=== PATIENT | female | born 1995 | race Caucasian/White ===

== ENCOUNTER → 2016-12-31 | Outpatient (REF) | payer OTHER ==
[~2016-12-31] MED LIST: ACET50TA PO; COLA100C PO; IBUP-1114 PO; LEVA500T PO; MOM30SS PO; PERC5TAB6 PO
[2016-12-31 13:39] LABS: MEAN CORPUSCULAR HEMOGLOBIN 28.9 pg (27.0-33.0); MEAN CORPUSCULAR HGB CONC 32.9 g/dl (32.0-36.5); MEAN CORPUSCULAR VOLUME 87.9 fl (80.0-96.0); WHITE BLOOD COUNT 7.4 K/mm3 (4.0-10.0)
[2016-12-31 14:19] LABS: CONTROL LINE INT CTR LINE PRESENT; HIV SCRN NEGATIVE (NEGATIVE); HIV SCRN1 NEGATIVE (NEGATIVE)
[2017-01-01 11:16] LABS: HBsAg Prenatal NEGATIVE (NEGATIVE)
== END ==
LOC: M LAB REF 12:30
PROVIDERS: ATTEND Obstetrics & Gynecology
DX: O36.80X0 Pregnancy with inconclusive fetal viability, not applicable or unspecified (principal); Z3A.00 Weeks of gestation of pregnancy not specified

== ENCOUNTER 2017-01-05 22:17 | Emergency (ER) | payer OTHER ==
[~2017-01-05] VITALS: Ht 175.3 cm; Wt 68.0 kg
[~2017-01-05 22:17] MED LIST changes: -COLA100C PO; +COLA100C3 PO
--- NOTE | 2017-01-06 01:00 | REPUSA ---
CLINICAL HISTORY: Vaginal bleeding. TECHNIQUE: Transabdominal and endovaginal ultrasound of the pelvis was performed. FINDINGS: Single, live intrauterine gestation. Estimated gestational age is 6 weeks and 3 days. [place]-rump length measures 7 mm. heart rate 126 beats per minute. There is a subchorionic hemorrhage measuring 3.6x2.5x3.4 cm the left of the gestational sac. Left ovarian corpus luteum cyst measuring 2 cm. Estimated delivery date on 08/29/2017. IMPRESSION: Single, live intrauterine gestation. Subchorionic hemorrhage.
[2017-01-06 01:40] VITALS: BP 101/64
--- NOTE | 2017-01-14 21:19 | ED PDOC ---
Post-Departure Follow-Up dr mccarty faxed formal report of 1st trimester us Jayleen Gann MD Jan 14, 2017 21:19
== END 2017-01-06 01:45 | disposition home or self-care (01) ==
LOC: M ED 23:47
DX: O26.891 Other specified pregnancy related conditions, first trimester (principal); N83.12 Corpus luteum cyst of left ovary; O36.8911 Maternal care for other specified fetal problems, first trimester, fetus 1; Z32.01 Encounter for pregnancy test, result positive; Z3A.01 Less than 8 weeks gestation of pregnancy

== ENCOUNTER → 2017-04-02 | Outpatient (CLI) | payer OTHER | LOC: M LAB 10:55 | PROVIDERS: ATTEND Advanced Practice Midwife | DX: Z31.438 Encounter for other genetic testing of female for procreative management (principal) ==

== ENCOUNTER → 2017-04-02 | Outpatient (CLI) | payer OTHER ==
--- NOTE | 2017-04-03 05:24 | REP ---
Clinical: Anatomical evaluation. Comparison: 01/06/2017 . Findings: Examination demonstrates a single live intrauterine in cephalic presentation. motion is identified by technologist. Placenta is noted fundally and grade zero without evidence for placenta previa or abruption. Amniotic fluid volume is normal. Cervix measures 3.2 cm in length and appears closed. No evidence for nuchal cord. Gestational age by LMP 18 weeks 3 days with JOURDAN 08/31/2017 . Gestational age by current measurements 18 weeks 6 days with JOURDAN 08/28/2017 . FHR equals 149 beats per minute. BPD 4.4 cm 19 weeks 3 days HC 15.9 cm 18 weeks 5 days AC 13.0 cm 18 weeks 4 days FL 2.8 cm 18 weeks 4 days HL 2.8 cm 18 weeks 6 days HC/AC ratio 1.22 Estimated weight 248 grams ( 54th percentile). Anatomical assessment demonstrates normal structures including cranium, choroid plexus, cavum, cerebellum/posterior fossa, facial features, lungs, four-chamber heart/ventricular outflow tracts, diaphragm, stomach, cord insertion/three-vessel cord, kidneys/bladder, spine, and extremities. Impression: 1. Single live intrauterine in cephalic presentation demonstrating appropriate interval growth. Anatomical assessment is complete and normal. 2. 4 cm cystic area within the posterior inferior portion of the placenta may represent small placental cyst or [place]. Signed by Jamel Atwood MD 04/03/2017 05:15 A
== END ==
LOC: M RAD 10:02
PROVIDERS: ATTEND Advanced Practice Midwife
DX: Z36 Encounter for antenatal screening of mother (principal); Z3A.18 18 weeks gestation of pregnancy

== ENCOUNTER 2017-04-09 18:24 | Emergency (ER) | payer OTHER, SELFPAY ==
[~2017-04-09] VITALS: Ht 175.3 cm; Wt 69.1 kg
[~2017-04-09 18:24] MED LIST changes: -COLA100C3 PO; +COLA100C5 PO; +LEVA1TAB2 PO; -LEVA500T PO; +PERC5TAB12 PO; -PERC5TAB6 PO
[2017-04-09 18:28] VITALS: BP 144/73
== END 2017-04-09 18:55 | disposition admitted as inpatient to this hospital (09) ==
LOC: M ED 18:24 → EDBD 18:24 → M ED 18:55
DX: Z04.1 Encounter for examination and observation following transport accident (principal); V43.52XA Car driver injured in collision with other type car in traffic accident, initial encounter; Y92.410 Unspecified street and highway as the place of occurrence of the external cause; Z3A.22 22 weeks gestation of pregnancy

== ENCOUNTER 2017-04-09 18:58 | Outpatient (CLI) | payer OTHER, SELFPAY ==
[2017-04-09 19:20] VITALS: BP 102/59
[2017-04-09 20:11] LABS: MEAN CORPUSCULAR HEMOGLOBIN 31.5 pg (27.0-33.0); MEAN CORPUSCULAR HGB CONC 35.4 g/dl (32.0-36.5); MEAN CORPUSCULAR VOLUME 88.9 fl (80.0-96.0); RED CELL DISTRIBUTION WIDTH 13.2 % (11.5-14.5); WHITE BLOOD COUNT 13.2 K/mm3 (4.0-10.0)
[2017-04-09 20:53] LABS: INR 0.98
== END 2017-04-09 21:00 | disposition home or self-care (01) ==
LOC: M LDO 18:58
PROVIDERS: ATTEND Advanced Practice Midwife
DX: Z04.3 Encounter for examination and observation following other accident (principal); V43.52XA Car driver injured in collision with other type car in traffic accident, initial encounter; Y92.410 Unspecified street and highway as the place of occurrence of the external cause; Y93.9 Activity, unspecified; Y99.9 Unspecified external cause status; Z3A.19 19 weeks gestation of pregnancy

== ENCOUNTER → 2017-05-07 | Outpatient (REF) | payer OTHER ==
[~2017-05-07] MED LIST changes: +FERR325T3 PO; +PREN1CHW4 PO
== END ==
LOC: M LAB REF 13:10
PROVIDERS: ATTEND Advanced Practice Midwife
DX: Z36 Encounter for antenatal screening of mother (principal); Z3A.00 Weeks of gestation of pregnancy not specified

== ENCOUNTER → 2017-06-23 | Outpatient (CLI) | payer OTHER ==
[~2017-06-23] MED LIST changes: +ADVI200C5 PO
[2017-06-23 14:09] LABS: BASO % 0.3 % (0.0-1.0); EOS # 0.1 K/mm3 (0.0-0.50); EOS % 0.8 % (0.0-3.0); LARGE UNSTAINED CELL # 0.1 K/mm3 (0.0-0.4); LARGE UNSTAINED CELL % 0.6 % (0.0-4.0); LYMPH # 1.5 K/mm3 (1.5-6.5); LYMPH % 13.9 % (24.0-44.0); MEAN CORPUSCULAR HEMOGLOBIN 31.4 pg (27.0-33.0); MEAN CORPUSCULAR VOLUME 92.3 fl (80.0-96.0); MONO # 0.6 K/mm3 (0.0-0.8); MONO % 5.4 % (0.0-5.0); NEUTROPHILS # 8.2 K/mm3 (1.8-7.7); NEUTROPHILS % 79.1 % (36.0-66.0); PLATELET COUNT, AUTOMATED 173 k/mm3 (150-450); RED CELL DISTRIBUTION WIDTH 12.9 % (11.5-14.5); WHITE BLOOD COUNT 10.4 K/mm3 (4.0-10.0)
== END ==
LOC: M SMT 10:00
PROVIDERS: ATTEND Advanced Practice Midwife
DX: Z36 Encounter for antenatal screening of mother (principal); Z3A.00 Weeks of gestation of pregnancy not specified

== ENCOUNTER → 2017-07-07 | Outpatient (REF) | payer OTHER | LOC: M LAB REF 12:57 | PROVIDERS: ATTEND Specialist | DX: Z36 Encounter for antenatal screening of mother (principal); Z3A.00 Weeks of gestation of pregnancy not specified ==

== ENCOUNTER → 2017-07-08 | Outpatient (CLI) | payer OTHER ==
--- NOTE | 2017-07-09 05:58 | REP ---
Clinical: Growth evaluation. Comparison: 04/02/2017 . Findings: Examination demonstrates a single live intrauterine in cephalic presentation. motion is identified by technologist. Placenta is noted right fundal and grade zero without evidence for placenta previa or abruption. Amniotic fluid volume is normal. Cervix measures 4.4 cm in length and appears closed. Nuchal cord noted. Gestational age by LMP 32 weeks 2 days with JOURDAN 08/31/2017 . Gestational age by current measurements 31 weeks 4 days with JOURDAN 09/05/2017 . FHR equals 133 beats per minute. BPD 8.1 cm 32 weeks 4 days HC 27.9 cm 30 weeks 4 days AC 28.2 cm 32 weeks 1 day FL 5.9 cm 30 weeks 5 days HL 5.4 cm 31 weeks 4 days HC/AC ratio 0.99 Estimated weight 1806 grams ( 30th percentile). Amniotic fluid index equals 12.9 cm (8.5 - 24.3) SD ratio equals 2.45 (2.35 - 3.35). Impression: 1. Single live intrauterine in cephalic presentation demonstrating appropriate interval growth. 2. Evidence for nuchal cord. Signed by Jamel Atwood MD 07/09/2017 05:50 A
== END ==
LOC: M RAD 14:30
PROVIDERS: ATTEND Specialist
DX: Z36 Encounter for antenatal screening of mother (principal); Z3A.00 Weeks of gestation of pregnancy not specified

== ENCOUNTER 2017-07-21 21:46 | Emergency (ER) | payer MEDICAID, OTHER, SELFPAY ==
[~2017-07-21] VITALS: Ht 177.8 cm; Wt 73.3 kg
[~2017-07-21 21:46] MED LIST changes: -ADVI200C5 PO; -FERR325T3 PO; -PREN1CHW4 PO
[2017-07-21 21:47] VITALS: BP 149/78
[2017-07-21] MEDS ORDERED: FERR325T3 PO (22:00)
[2017-07-21] MEDS ORDERED: PREN1CHW4 PO (22:00)
== END 2017-07-21 22:29 | disposition home or self-care (01) ==
LOC: M ED 21:46
DX: T16.2XXA Foreign body in left ear, initial encounter (principal); Y92.89 Other specified places as the place of occurrence of the external cause; Z79.899 Other long term (current) drug therapy

== ENCOUNTER → 2017-08-07 | Outpatient (REF) | payer MEDICAID, OTHER ==
[~2017-08-07] MED LIST changes: +ADVI200C5 PO; +FERR325T3 PO; +PREN1CHW4 PO
== END ==
LOC: M LAB REF 17:18
PROVIDERS: ATTEND Specialist
DX: Z34.83 Encounter for supervision of other normal pregnancy, third trimester (principal)

== ENCOUNTER 2017-08-23 22:07 | Inpatient (IN) | payer MEDICAID, OTHER ==
[~2017-08-23] VITALS: Ht 175.3 cm; Wt 75.1 kg
[~2017-08-23 22:07] MED LIST changes: -ADVI200C5 PO
[2017-08-23 22:25] VITALS: BP 122/77
[2017-08-23] MEDS ORDERED: PENICILLIN G POTASSIUM IV 5 MU in D5W MINI-BAG PLUS 100 ML IV STA (23:40)
[2017-08-23] MEDS ORDERED: OXYTOCIN DRIP 30 UNITS in APPROPRIATE DILUENT 1 EA IV SCH (23:45)
[2017-08-24] VITALS (45 sets, daily range): BP systolic 98–135; BP diastolic 53–93
[2017-08-24 00:11] LABS: MEAN CORPUSCULAR HEMOGLOBIN 30.6 pg (27.0-33.0); MEAN CORPUSCULAR HGB CONC 34.4 g/dl (32.0-36.5); MEAN CORPUSCULAR VOLUME 89.1 fl (80.0-96.0); PLATELET COUNT, AUTOMATED 182 10^3/uL (150-450); WHITE BLOOD COUNT 13.5 10^3/uL (4.0-10.0)
[2017-08-24] MEDS: LR 1,000 ML IV SCH ×2 (00:11→08:46)
--- NOTE | 2017-08-24 01:24 | HPE ---
DATE OF ADMISSION: 08/23/2017 HISTORY: 21-year-old (G) 2, para (P) 1 female at 39-0/7 weeks gestation by last menstrual period (LMP) consistent with 6-week ultrasound, estimated date of confinement (EDC) of 08/31/2017, presents with contractions every 4-5 minutes, as well as question of leaking fluid per vagina. She has low back pain. She denies vaginal bleeding. COURSE: The patient initiated care at 11 weeks gestation on 01/30/2017. Her first trimester blood pressure was 118/74. Weight was 153 pounds. course was unremarkable. OBSTETRICAL HISTORY: April 2016 40-week vaginal delivery, 7 pound 0 ounce female infant. MEDICAL HISTORY: Noncontributory. SURGICAL HISTORY: 2014 nephrectomy to donate a kidney to her brother. SOCIAL HISTORY: The father of the baby is involved. The patient denies cigarettes, alcohol or drug use during her . FAMILY HISTORY: History of pesxfuma-ubw-ciudn syndrome in her brother. PHYSICAL EXAMINATION: VITAL SIGNS: Blood pressure 124/74, pulse 84. She appears moderately uncomfortable. HEAD/NECK: Examination normal. LUNGS: Clear. HEART: Regular rate and rhythm. ABDOMEN: Nontender. Gravid. heart tones category 1. Contractions every 4 minutes. STERILE VAGINAL EXAMINATION: 4 cm, 90% effaced, -2 station, vertex, intact. EXTREMITIES: Nontender. LABORATORIES: Blood type O positive. Rubella immune. RPR nonreactive. Hepatitis B and C negative. HIV negative. Group B Streptococcus (GBS) positive on 08/11/2017. ASSESSMENT: 21-year-old (G) 2, para (P) 1 female at 39-0/7 weeks gestation presents in active labor. Patient is admitted on 08/23/2017. If labor stalls, may require Pitocin augmentation.
[2017-08-24] MEDS ORDERED: FENTANYL 2MCG/ML ROPIVACAINE 0.2% IN 0.9% NACL 200ML IVBAG As Ordered ONE (02:59)
[2017-08-24] MEDS: PENICILLIN G POTASSIUM IV 2.5 MU in D5W 100 ML IV SCH ×2 (04:19→08:47)
[2017-08-24] MEDS ORDERED: ONDANSETRON 4MG/2ML VIAL (J2405) IV PRN ×2 (04:30→12:45)
[2017-08-24] MEDS ORDERED: LACTATED RINGER'S 1000 ML IV PRN (04:30)
[2017-08-24] MEDS ORDERED: EPIDURAL/PCA KEYS XX PRN (04:30)
[2017-08-24] MEDS ORDERED: ePHEDrine SULFATE 25 MG/5 ML(5MG/ML) SYRINGE IV PRN (04:30)
[2017-08-24] MEDS ORDERED: REFRIGERATOR IV KEYS XX PRN (04:30)
[2017-08-24] MEDS ORDERED: FENTANYL/ROPIVACAINE/NACL BAG 200 ML EPIDURAL SCH (04:30)
[2017-08-24] MEDS ORDERED: diphenhydrAMINE INJ 50MG/ML VIAL (J1200) IV PRN (04:30)
[2017-08-24] MEDS ORDERED: NALOXONE INJ 0.4 MG/1 ML VIAL (J2310) IV PRN (04:30)
[2017-08-24] MEDS ORDERED: EPIDURAL COMMENT XX SCH (04:30)
[2017-08-24] MEDS: PRENATAL VITAMINS CHEWABLE TABLET PO SCH (09:00)
[2017-08-24] MEDS ORDERED: METHYLERGONOVINE MALEATE 0.2 MG TAB PO PRN (12:45)
[2017-08-24] MEDS ORDERED: DIBUCAINE 1% OINTMENT 30GM TOP PRN (12:45)
[2017-08-24] MEDS ORDERED: RHOGAM 300 MCG (1500 IU) INJ (J2790) IM SCH (12:45)
[2017-08-24] MEDS ORDERED: DOCUSATE SODIUM 100 MG CAP PO PRN (12:45)
[2017-08-24] MEDS ORDERED: MEASLES,MUMPS,RUBELLA VACCINE INJ (MMR-II) (90707) SC SCH (12:45)
[2017-08-24] MEDS ORDERED: OXYTOCIN DRIP 30 UNITS in APPROPRIATE DILUENT 1 EA IV ONE (12:45)
[2017-08-24] MEDS ORDERED: ACETAMINOPHEN 500 MG TAB PO PRN (12:45)
[2017-08-24] MEDS: IBUPROFEN 800 MG TAB PO PRN (13:25)
--- NOTE | 2017-08-24 22:09 | DN ---
DATE: 08/24/2017 PREDELIVERY DIAGNOSIS: 39 and 0/7 weeks gestation in labor. POSTDELIVERY DIAGNOSIS: Delivered. PROCEDURE: Spontaneous vaginal delivery. APPEALS EXAMINER: Dr. Philip Garvin. ANESTHESIA: Epidural. ESTIMATED BLOOD LOSS: 300 mL. FINDINGS: 6 pound 13 ounce female infant, scores 9 and 9, 3090 grams. DELIVERY SUMMARY: After a total of two pushes, the patient had spontaneous delivery of a 6 pound 13 ounce female , scores 9 and 9, under epidural anesthesia. Nuchal cord times one was reduced. The shoulders delivered spontaneously with ease. The infant cried immediately and was handed to the mother. The cord was doubly clamped and cut. The placenta was delivered by manual extraction and appeared to be intact. The patient received intravenous (IV) Pitocin immediately after delivering the placenta. There were no sponges used during delivery so there was no sponge count done.
[2017-08-25] MEDS: IBUPROFEN 800 MG TAB PO PRN (00:29)
[2017-08-25 05:33] VITALS: BP 111/59
[2017-08-25] MEDS: PRENATAL VITAMINS CHEWABLE TABLET PO SCH (07:41)
[2017-08-25] MEDS ORDERED: ACET50TA PO (07:53)
[2017-08-25] MEDS ORDERED: ADVI200C5 PO (07:54)
[2017-08-25] MEDS ORDERED: medroxyPROGESTERone ACET IM SUSP 150 MG/ML VIAL (J1050) IM ONE (16:00)
== END 2017-08-25 17:35 | disposition home or self-care (01) | DRG 560 ==
LOC: M LDO 22:07 → M LDI 23:34 → M OBS 08-24 13:48
PROVIDERS: ADMIT Specialist; ATTEND Specialist
PROC: 10E0XZZ Delivery of Products of Conception, External Approach (ICD-10-PCS; principal; 2017-08-24)
DX: O99.824 Streptococcus B carrier state complicating childbirth (principal); O69.81X0 Labor and delivery complicated by cord around neck, without compression, not applicable or unspecified; Z3A.39 39 weeks gestation of pregnancy; Z37.0 Single live birth

== ENCOUNTER → 2018-09-18 | Outpatient (REF) | payer OTHER | LOC: M SFHCPLAZ 10:44 | DX: Z53.9 Procedure and treatment not carried out, unspecified reason (principal) ==

== ENCOUNTER → 2018-09-22 | Outpatient (CLI) | payer OTHER ==
[~2018-09-22] MED LIST changes: -ACET50TA PO; +ADVI200C5 PO; +MAPA500T2 PO
[2018-09-22 07:31] LABS: BASO % 0.6 % (0.0-1.0); EOS # 0.1 10^3/uL (0.0-0.50); HEMATOCRIT 37.2 % (36.0-47.0); HEMOGLOBIN 12.6 g/dl (12.0-15.5); LYMPH # 1.7 10^3/uL (1.5-6.5); LYMPH % 30.6 % (24.0-44.0); MEAN CORPUSCULAR HEMOGLOBIN 31.3 pg (27.0-33.0); MEAN CORPUSCULAR HGB CONC 33.9 g/dl (32.0-36.5); MEAN CORPUSCULAR VOLUME 92.3 fl (80.0-96.0); MONO # 0.5 10^3/uL (0.0-0.8); MONO % 9.6 % (0.0-5.0); NEUTROPHILS # 3.1 10^3/uL (1.8-7.7); PLATELET COUNT, AUTOMATED 223 10^3/uL (150-450); RED BLOOD COUNT 4.03 10^6/uL (4.00-5.40); WHITE BLOOD COUNT 5.4 10^3/uL (4.0-10.0)
[2018-09-22 08:03] LABS: ALBUMIN 3.8 GM/DL (3.2-5.2); ALT/SGPT 21 U/L (12-78); BILIRUBIN,TOTAL 0.4 MG/DL (0.2-1.0); BLOOD UREA NITROGEN 8 MG/DL (7-18); C REACTIVE PROTEIN QUANTITATIV < 0.30 MG/DL (0.00-0.30); CALCIUM LEVEL 8.7 MG/DL (8.5-10.1); CARBON DIOXIDE LEVEL 28 MEQ/L (21-32); CHLORIDE LEVEL 109 MEQ/L (98-107); CREATININE FOR GFR 0.94 MG/DL (0.55-1.30); FREE T4 1.09 NG/DL (0.76-1.46); GLOMERULAR FILTRATION RATE > 60.0 (>60); GLUCOSE, FASTING 84 MG/DL (70-100); POTASSIUM SERUM 4.4 MEQ/L (3.5-5.1); SODIUM LEVEL 142 MEQ/L (136-145); TOTAL PROTEIN 7.2 GM/DL (6.4-8.2)
[2018-09-22 08:27] LABS: ERYTHROCYTE SEDIMENTATION RATE 6 mm/hr (0-20)
--- NOTE | 2018-09-22 10:33 | REP ---
PELVIC ULTRASOUND: Real-time sonographic evaluation of the pelvis performed utilizing transabdominal technique. The bladder is collapsed. The uterus measures 7.7 x 3.1 x 5.7 cm. Endometrial thickness is normal at 2 mm. There is no endometrial fluid collection. The ovaries are normal in size and echotexture, right ovary measuring 3.1 x 2.2 x 1.4 cm and left ovary 2.9 x 2.2 x 1.9 cm. There are normal sized follicles in the ovaries. There is no adnexal mass or free fluid. Inguinal regions are scanned demonstrating no adenopathy. IMPRESSION: Negative pelvic ultrasound. Electronically Signed by Sim Easton MD 09/22/2018 03:40 P
== END ==
LOC: M LAB 07:00
PROVIDERS: ATTEND Obstetrics & Gynecology
DX: R63.4 Abnormal weight loss (principal)

== ENCOUNTER → 2018-10-26 | Outpatient (REF) | payer OTHER | LOC: M LABDRAW1 11:05 | PROVIDERS: ATTEND Obstetrics & Gynecology | DX: Z36.89 Encounter for other specified antenatal screening (principal); Z3A.01 Less than 8 weeks gestation of pregnancy ==

== ENCOUNTER 2018-12-21 17:29 | Emergency (ER) | payer OTHER ==
[~2018-12-21] VITALS: Ht 175.3 cm; Wt 56.8 kg
[2018-12-21 17:29] VITALS: BP 113/58
== END 2018-12-21 19:26 | disposition left against medical advice (07) ==
LOC: M ED 17:29
DX: Z53.21 Procedure and treatment not carried out due to patient leaving prior to being seen by health care provider (principal)

== ENCOUNTER 2019-03-06 07:57 | Emergency (ER) | payer OTHER ==
[~2019-03-06] VITALS: Ht 177.8 cm; Wt 59.7 kg
[2019-03-06 08:39] LABS: BASO % 0.3 % (0.0-1.0); EOS # 0.1 10^3/uL (0.0-0.50); EOS % 0.7 % (0.0-3.0); HEMATOCRIT 33.3 % (36.0-47.0); HEMOGLOBIN 11.5 g/dl (12.0-15.5); LYMPH # 1.3 10^3/uL (1.5-6.5); LYMPH % 11.9 % (24.0-44.0); MEAN CORPUSCULAR HEMOGLOBIN 32.6 pg (27.0-33.0); MEAN CORPUSCULAR HGB CONC 34.5 g/dl (32.0-36.5); MEAN CORPUSCULAR VOLUME 94.3 fl (80.0-96.0); MONO # 0.7 10^3/uL (0.0-0.8); MONO % 6.4 % (0.0-5.0); NEUTROPHILS # 8.8 10^3/uL (1.8-7.7); NEUTROPHILS % 79.3 % (36.0-66.0); PLATELET COUNT, AUTOMATED 204 10^3/uL (150-450); RED BLOOD COUNT 3.53 10^6/uL (4.00-5.40); WHITE BLOOD COUNT 11.1 10^3/uL (4.0-10.0)
[2019-03-06 08:59] LABS: BLOOD UREA NITROGEN 8 MG/DL (7-18); CALCIUM LEVEL 8.8 MG/DL (8.5-10.1); CARBON DIOXIDE LEVEL 27 MEQ/L (21-32); CHLORIDE LEVEL 106 MEQ/L (98-107); CREATININE FOR GFR 0.68 MG/DL (0.55-1.30); GLOMERULAR FILTRATION RATE > 60.0 (>60); GLUCOSE, FASTING 81 MG/DL (70-100); POTASSIUM SERUM 4.1 MEQ/L (3.5-5.1); SODIUM LEVEL 138 MEQ/L (136-145)
--- NOTE | 2019-03-06 09:29 | REP ---
Clinical: Vaginal bleeding. Comparison: 03/02/2019 . Findings: Examination demonstrates a single live intrauterine in cephalic presentation. motion is identified by technologist. heart rate equals 149 beats per minute. Placenta is noted anterior/right lateral and grade 1 without evidence for placenta previa or abruption. Amniotic fluid volume is normal (ANILA = 14.4 cm). Cervix measures 3.5 cm in length and appears closed. A large subchorionic hemorrhage is identified extending from the lower uterine segment towards the left lateral fundal portion of the uterus which is difficult to completely quantify but measures greater than 7 cm maximal diameter. This likely represents the merging of the previously noted two separate areas of subchorionic hemorrhage and does appear to extend over the closed internal os. Impression: 1. Large subchorionic hemorrhage as described above. 2. Live fetus in cephalic presentation. Electronically Signed by Jamel Atwood MD 03/06/2019 09:20 A
[2019-03-06 10:42] VITALS: BP 106/57
== END 2019-03-06 10:44 | disposition home or self-care (01) ==
LOC: M ED 07:57
DX: O36.8921 Maternal care for other specified fetal problems, second trimester, fetus 1 (principal); Z3A.19 19 weeks gestation of pregnancy

== ENCOUNTER → 2019-03-23 | Outpatient (CLI) | payer OTHER ==
--- NOTE | 2019-03-23 10:37 | REP ---
Obstetric sonography: History: Supervision of for anatomy. Comparison study March 06, 2019. Findings: Scanning through the gravid uterus demonstrates a viable single intrauterine gestation in a breech lie. motion is observed and heart rate is recorded at 144 beats per minute. An anterior grade 0 placenta is seen without evidence of previa or abruption. Amniotic fluid is subjectively normal. Closed cervical length is 4.2 cm measured transabdominally. No extrauterine abnormalities observed. There has been appropriate interval growth. The previously noted subchorionic hemorrhages are again noted. A right fundal portion is seen measuring 2.4 x 2.0 x 1.2 cm. A lower uterine segment portion is noted measuring 6.1 x 1.0 x 6.6 cm on today's examination. spine is still less than optimally visualized today due to position. Biometry chart: BPD 4.9 cm = 20 weeks 6 days Head circumference 18.6 cm = 21 weeks 0 days Abdominal circumference 15.8 cm = 21 weeks 0 days Femur length 3.4 cm = 20 weeks 5 days Humeral length 3.4 cm = 21 weeks 5 days HC/AC ratio normal 1.18. Cephalic index normal 0.73. Estimated weight 381 grams, 0 pounds 13 ounces, 41st percentile for 21 weeks 0 days. Impression: Viable single intrauterine gestation at 21 weeks 0 days by today's composite sonographic criteria. Expected gestational age estimate based on prior sonography is 21 weeks 1 day. JOURDAN by prior sonography August 02, 2019. Two subchorionic hemorrhages again noted as measured above. spine is still less than optimally visualized. Electronically Signed by Jah Morris MD 03/23/2019 09:02 P
== END ==
LOC: M RAD 08:59
PROVIDERS: ATTEND Specialist
DX: Z36.2 Encounter for other antenatal screening follow-up (principal); O36.8921 Maternal care for other specified fetal problems, second trimester, fetus 1; Z3A.21 21 weeks gestation of pregnancy

== ENCOUNTER → 2019-04-12 | Outpatient (CLI) | payer OTHER ==
[~2019-04-12] MED LIST changes: +ROBILIQ13 PO
--- NOTE | 2019-04-12 19:31 | REP ---
Clinical: Anatomical evaluation. Comparison: 03/23/2019 . Findings: Examination demonstrates a single live intrauterine in cephalic presentation. motion is identified by technologist. Placenta is noted anterior/right lateral and grade one without evidence for placenta previa or abruption. Amniotic fluid volume is normal. Cervix measures 3.9 cm in length and appears closed. No evidence for nuchal cord. Previously identified subchorionic hemorrhage appears to have resolved. Gestational age by LMP 23 weeks 6 days with JOURDAN 08/03/2019 . Gestational age by current measurements 24 weeks 3 days with JOURDAN 07/30/2019 . FHR equals 137 beats per minute. Estimated weight 685 grams ( 57th percentile). Anatomical assessment demonstrates normal spinal images. Impression: 1. Single live intrauterine in cephalic presentation demonstrating appropriate interval growth. In conjunction with prior examination anatomical assessment is complete and normal. No gross abnormalities are identified. 2. The previous identified subchorionic hemorrhage is no longer visible and may have resolved. Electronically Signed by Jamel Atwood MD 04/12/2019 07:23 P
== END ==
LOC: M RAD 16:34
PROVIDERS: ATTEND Specialist
DX: Z34.82 Encounter for supervision of other normal pregnancy, second trimester (principal); Z3A.24 24 weeks gestation of pregnancy

== ENCOUNTER → 2019-05-28 | Outpatient (CLI) | payer OTHER ==
[~2019-05-28] MED LIST changes: -ROBILIQ13 PO
[2019-05-28 10:03] LABS: BASO % 0.4 % (0.0-1.0); EOS # 0.1 10^3/uL (0.0-0.50); HEMOGLOBIN 11.3 g/dl (12.0-15.5); LYMPH # 1.7 10^3/uL (1.5-6.5); LYMPH % 16.3 % (24.0-44.0); MEAN CORPUSCULAR HEMOGLOBIN 33.2 pg (27.0-33.0); MEAN CORPUSCULAR HGB CONC 35.3 g/dl (32.0-36.5); MEAN CORPUSCULAR VOLUME 94.1 fl (80.0-96.0); MONO # 0.7 10^3/uL (0.0-0.8); MONO % 6.6 % (0.0-5.0); NEUTROPHILS # 7.6 10^3/uL (1.8-7.7); NEUTROPHILS % 74.1 % (36.0-66.0); PLATELET COUNT, AUTOMATED 164 10^3/uL (150-450); WHITE BLOOD COUNT 10.3 10^3/uL (4.0-10.0)
== END ==
LOC: M LAB 08:38
PROVIDERS: ATTEND Specialist
DX: Z34.82 Encounter for supervision of other normal pregnancy, second trimester (principal)

== ENCOUNTER → 2019-06-29 | Outpatient (CLI) | payer OTHER ==
--- NOTE | 2019-06-30 03:37 | REP ---
Clinical: Growth evaluation. Comparison: 04/12/2019 . Findings: Examination demonstrates a single live intrauterine in cephalic presentation. motion is identified by technologist. Placenta is noted anterior and grade II without evidence for placenta previa or abruption. Amniotic fluid volume is normal. Cervix measures 3.3 cm in length and appears closed. No evidence for nuchal cord. Gestational age by LMP 35 weeks 0 days with JOURDAN 08/03/2019 . Gestational age by current measurements 34 weeks 1 day with JOURDAN 08/09/2019 . FHR equals 129 beats per minute. BPD 8.8 cm 35 weeks 5 day HC 31.5 cm 35 weeks 2 days AC 28.4 cm 32 weeks 3 days FL 6.6 cm 33 weeks 6 days HL 5.7 cm 33 weeks 2 days HC/AC ratio 1.11 Estimated weight 2190 grams ( 21st percentile). Amniotic fluid volume: 12.7 cm (7.9 - 24.9). Umbilical cord SD ratio: 2.29 (2.00 - 3.00) Impression: Single live advanced gestation in cephalic presentation demonstrating appropriate interval growth. No gross abnormalities are identified. Electronically Signed by Jamel Atwood MD 06/30/2019 03:28 A
== END ==
LOC: M RAD 14:53
PROVIDERS: ATTEND Specialist
DX: O36.5933 Maternal care for other known or suspected poor fetal growth, third trimester, fetus 3 (principal); Z3A.35 35 weeks gestation of pregnancy

== ENCOUNTER → 2019-07-06 | Outpatient (REF) | payer OTHER | LOC: M LAB REF 12:57 | PROVIDERS: ATTEND Specialist | DX: Z36.85 Encounter for antenatal screening for Streptococcus B (principal) ==

== ENCOUNTER 2019-07-20 15:36 | Inpatient (IN) | payer OTHER ==
[2019-07-20] VITALS (20 sets, daily range): BP systolic 90–135; BP diastolic 50–86
[~2019-07-20] VITALS: Ht 175.3 cm; Wt 71.4 kg
[2019-07-20] MEDS ORDERED: ROBILIQ13 PO (16:06)
--- NOTE | 2019-07-20 17:39 | HPE ---
DATE OF ADMISSION: 07/20/2019 A 23-year-old 4, para 2-0-1-2 female at 38-2/7 weeks gestation by 8-week ultrasound, estimated date of confinement (EDC) of 08/01/2019, presents with contractions every 3-4 minutes, throughout the entire day today, the contractions increased in intensity. She thought she might be leaking a little bit of fluid but was not sure. There was good movement. There was no vaginal bleeding. COURSE: The patient initiated care at 12 weeks gestation, 01/19/2019. Her first trimester blood pressure was 104/64, weight was 125 pounds. She had a large subchorionic hemorrhage noted early , which subsequently resolved. Remainder of course was unremarkable. MEDICAL HISTORY: None. SURGICAL HISTORY: Removal of kidney 2014 for donation to a family member. ALLERGIES: None. SOCIAL HISTORY: The father of the baby is involved. Patient denies cigarettes, alcohol, or drug use during . FAMILY HISTORY: Noncontributory. PHYSICAL EXAMINATION: Blood pressure 119/69, pulse 112, afebrile. Appears moderately uncomfortable. Head and neck exam is normal. Lungs: Clear. Heart: Regular rate and rhythm. Abdomen: Nontender, gravid. heart tones: Category 1. Sterile vaginal exam: 4 cm, 90%, -2, posterior, soft, vertex. Contractions every 3-4 minutes. Extremities: Nontender. LABS: Blood type O positive, Rubella immune, RPR nonreactive. Hepatitis B and C negative. GBS negative on 07/06/2019. ASSESSMENT: A 23-year-old 4, para 2-0-1-2 female at 38 and 2/7 weeks gestation presents in labor. PLAN: The patient is admitted on 07/20/2019. If no progress, could consider Pitocin augmentation.
[2019-07-20] MEDS ORDERED: OXYTOCIN DRIP 30 UNITS in IV 1 EA IV SCH (17:45)
[2019-07-20 17:48] LABS: HEMATOCRIT 33.6 % (36.0-47.0); HEMOGLOBIN 11.9 g/dl (12.0-15.5); MEAN CORPUSCULAR HEMOGLOBIN 32.7 pg (27.0-33.0); MEAN CORPUSCULAR HGB CONC 35.4 g/dl (32.0-36.5); MEAN CORPUSCULAR VOLUME 92.3 fl (80.0-96.0); PLATELET COUNT, AUTOMATED 228 10^3/uL (150-450); RED BLOOD COUNT 3.64 10^6/uL (4.00-5.40); WHITE BLOOD COUNT 13.3 10^3/uL (4.0-10.0)
[2019-07-20] MEDS: LR 1,000 ML IV SCH ×3 (18:43→22:14)
[2019-07-20] MEDS ORDERED: FENTANYL 2MCG/ML ROPIVACAINE 0.2% IN 0.9% NACL 100ML IVBAG As Ordered ONE (21:36)
[2019-07-20] MEDS ORDERED: diphenhydrAMINE INJ 50MG/ML VIAL (J1200) IV PRN (23:00)
[2019-07-20] MEDS ORDERED: ePHEDrine SULFATE 25 MG/5 ML(5MG/ML) SYRINGE IV PRN (23:00)
[2019-07-20] MEDS ORDERED: LACTATED RINGER'S 1000 ML IV PRN (23:00)
[2019-07-20] MEDS ORDERED: NALOXONE INJ 0.4 MG/1 ML VIAL (J2310) IV PRN (23:00)
[2019-07-20] MEDS ORDERED: EPIDURAL/PCA KEYS XX PRN (23:00)
[2019-07-20] MEDS ORDERED: ONDANSETRON 4MG/2ML VIAL (J2405) IV PRN (23:00)
[2019-07-20] MEDS ORDERED: EPIDURAL COMMENT XX SCH (23:00)
[2019-07-20] MEDS ORDERED: REFRIGERATOR IV KEYS XX PRN (23:00)
[2019-07-20] MEDS ORDERED: FENTANYL/ROPIVACAINE/NACL BAG 100 ML EPIDURAL SCH (23:00)
[2019-07-21] VITALS (10 sets, daily range): BP systolic 108–127; BP diastolic 58–75
[2019-07-21] MEDS ORDERED: MEASLES,MUMPS,RUBELLA VACCINE INJ (MMR-II) (90707) SC SCH (01:30)
[2019-07-21] MEDS ORDERED: DOCUSATE SODIUM 100 MG CAP PO PRN (01:30)
[2019-07-21] MEDS ORDERED: IBUPROFEN 600 MG TAB PO PRN (01:30)
[2019-07-21] MEDS ORDERED: ACETAMINOPHEN TAB 650MG DOSE (2X325MG) PO PRN (01:30)
[2019-07-21] MEDS ORDERED: METHYLERGONOVINE MALEATE 0.2 MG TAB PO PRN (01:30)
[2019-07-21] MEDS ORDERED: RHOGAM 300 MCG (1500 IU) INJ (J2790) IM SCH (01:30)
[2019-07-21] MEDS ORDERED: OXYTOCIN DRIP 30 UNITS in IV 1 EA IV ONE (01:30)
[2019-07-21] MEDS ORDERED: ONDANSETRON 4MG/2ML VIAL (J2405) IV PRN (01:30)
[2019-07-21] MEDS ORDERED: DIBUCAINE 1% OINTMENT 30GM TOP PRN (01:30)
[2019-07-21] MEDS: PRENATAL VITAMINS CHEWABLE TABLET PO SCH (09:14)
--- NOTE | 2019-07-21 12:37 | DN ---
DATE OF DELIVERY: 07/21/2019 PREDELIVERY DIAGNOSES: 38-3/7 weeks' gestation, labor. POSTDELIVERY DIAGNOSIS: Delivered. PROCEDURE: Spontaneous vaginal delivery. TICKETING AGENT: Pihlip Garvin MD ANESTHESIA: Epidural. ESTIMATED BLOOD LOSS: 300 mL. FINDINGS: A 5-pound 13-ounce female infant, scores 9 and 10. DELIVERY SUMMARY: After a short second phase consisting of one contraction, the patient had spontaneous delivery of a 5-pound 13-ounce female infant, scores 9 and 10, under epidural anesthesia. There was no nuchal cord. The shoulders delivered with ease. The was handed to the mother. The cord was doubly clamped and cut. The placenta delivered spontaneously and appeared to be intact. The patient received intravenous (IV) Pitocin immediately after delivery of the placenta. There were no vaginal lacerations present. Sponge counts were correct.
[2019-07-21] MEDS: IBUPROFEN 800 MG TAB PO PRN (12:45)
[2019-07-21] MEDS: ACETAMINOPHEN 500 MG TAB PO PRN (20:10)
[2019-07-22] MEDS: IBUPROFEN 800 MG TAB PO PRN (01:03)
[2019-07-22] MEDS: ACETAMINOPHEN 500 MG TAB PO PRN (05:25)
[2019-07-22 06:03] VITALS: BP 104/63
[2019-07-22] MEDS ORDERED: medroxyPROGESTERone ACET IM SUSP 150 MG/ML VIAL (J1050) IM ONE (07:00)
[2019-07-22] MEDS: PRENATAL VITAMINS CHEWABLE TABLET PO SCH (08:50)
== END 2019-07-22 09:30 | disposition home or self-care (01) | DRG 560 ==
LOC: M LDO 15:36 → M LDI 16:46 → M OBS 07-21 04:23
PROVIDERS: ADMIT Specialist; ATTEND Specialist
PROC: 10E0XZZ Delivery of Products of Conception, External Approach (ICD-10-PCS; principal; 2019-07-21)
DX: O80 Encounter for full-term uncomplicated delivery (principal); Z3A.38 38 weeks gestation of pregnancy; Z37.0 Single live birth

== ENCOUNTER → 2019-10-15 | Outpatient (REF) | payer OTHER ==
[~2019-10-15] MED LIST changes: +ROBILIQ13 PO
[2019-10-15 20:47] LABS: CHLAMYDIA DNA AMPLIFICATION NEGATIVE (NEGATIVE); GC DNA AMPLIFICATION NEGATIVE (NEGATIVE)
== END ==
LOC: M SFHCWAGY 17:03
PROVIDERS: ATTEND Obstetrics & Gynecology
DX: Z12.4 Encounter for screening for malignant neoplasm of cervix (principal)

== ENCOUNTER → 2019-12-03 | Outpatient (CLI) | payer OTHER | LOC: M LAB 08:50 | PROVIDERS: ATTEND Pediatrics Pediatric Nephrology | DX: D84.9 Immunodeficiency, unspecified (principal); N18.5 Chronic kidney disease, stage 5; Z94.0 Kidney transplant status; Z79.899 Other long term (current) drug therapy ==

== ENCOUNTER 2020-04-04 17:57 | Emergency (ER) | payer OTHER ==
[~2020-04-04] VITALS: Ht 175.3 cm; Wt 67.9 kg
[2020-04-04 17:58] VITALS: BP 142/87
[2020-04-04] MEDS ORDERED: TETRACAINE 0.5% OPHTH SOLN 4ML OS ONE (18:30)
[2020-04-04] MEDS ORDERED: FLUORESCEIN OPHTH 1 MG STRIP OS ONE (18:30)
[2020-04-04] MEDS ORDERED: OCUF0.25 OS (18:45)
== END 2020-04-04 18:50 | disposition home or self-care (01) ==
LOC: M ED 17:57
DX: S05.8X2A Other injuries of left eye and orbit, initial encounter (principal); X58.XXXA Exposure to other specified factors, initial encounter; Y92.9 Unspecified place or not applicable

== ENCOUNTER 2021-03-01 23:29 | Emergency (ER) | payer OTHER ==
[~2021-03-01] VITALS: Ht 180.3 cm; Wt 64.9 kg
[~2021-03-01 23:29] MED LIST changes: +OCUF0.25 OS
[2021-03-02 04:21] LABS: BASO # 0.1 10^3/uL (0.0-0.2); BASO % 0.4 % (0.0-1.0); EOS # 0.1 10^3/uL (0.0-0.5); EOS % 0.9 % (0.0-3.0); HEMATOCRIT 35.8 % (36.0-47.0); HEMOGLOBIN 12.1 g/dl (12.0-15.5); LYMPH # 1.8 10^3/uL (1.5-5.0); LYMPH % 13.7 % (24.0-44.0); MEAN CORPUSCULAR HEMOGLOBIN 31.3 pg (27.0-33.0); MEAN CORPUSCULAR HGB CONC 33.8 g/dl (32.0-36.5); MEAN CORPUSCULAR VOLUME 92.7 fl (80.0-96.0); MONO # 0.7 10^3/uL (0.0-0.8); NEUTROPHILS # 10.4 10^3/uL (1.5-8.5); NEUTROPHILS % 79.5 % (36.0-66.0); PLATELET COUNT, AUTOMATED 215 10^3/uL (150-450); RED BLOOD COUNT 3.86 10^6/uL (4.00-5.40); WHITE BLOOD COUNT 13.1 10^3/uL (4.0-10.0)
[2021-03-02 04:47] LABS: BLOOD UREA NITROGEN 12 MG/DL (7-18); CALCIUM LEVEL 9.1 MG/DL (8.5-10.1); CARBON DIOXIDE LEVEL 27 MEQ/L (21-32); CHLORIDE LEVEL 110 MEQ/L (98-107); CREATININE FOR GFR 1.02 MG/DL (0.55-1.30); GLOMERULAR FILTRATION RATE > 60.0 (>60); GLUCOSE, FASTING 106 MG/DL (70-100); POTASSIUM SERUM 4.5 MEQ/L (3.5-5.1); SODIUM LEVEL 141 MEQ/L (136-145)
[2021-03-02 04:52] LABS: HCG, SERUM QUALITATIVE NEGATIVE (NEGATIVE)
[2021-03-02] MEDS ORDERED: NS 1,000 ML IV ONE (07:15)
[2021-03-02] MEDS ORDERED: LIDOCAINE 1% MDV 50ML VIAL As Ordered ONE (07:34)
[2021-03-02 07:44] LABS: BASO % 0.3 % (0.0-1.0); EOS # 0.1 10^3/uL (0.0-0.5); EOS % 0.5 % (0.0-3.0); HEMATOCRIT 32.3 % (36.0-47.0); HEMOGLOBIN 11.1 g/dl (12.0-15.5); LYMPH # 1.3 10^3/uL (1.5-5.0); LYMPH % 9.4 % (24.0-44.0); MEAN CORPUSCULAR HEMOGLOBIN 31.4 pg (27.0-33.0); MEAN CORPUSCULAR HGB CONC 34.4 g/dl (32.0-36.5); MEAN CORPUSCULAR VOLUME 91.2 fl (80.0-96.0); MONO # 0.7 10^3/uL (0.0-0.8); NEUTROPHILS # 11.3 10^3/uL (1.5-8.5); NEUTROPHILS % 84.1 % (36.0-66.0); PLATELET COUNT, AUTOMATED 227 10^3/uL (150-450); RED BLOOD COUNT 3.54 10^6/uL (4.00-5.40); WHITE BLOOD COUNT 13.5 10^3/uL (4.0-10.0)
[2021-03-02] MEDS ORDERED: LIDOCAINE 1% MDV 50ML VIAL SC ONE (08:15)
--- NOTE | 2021-03-02 08:33 | IPNPDOC ---
Text Note Date of Service The patient was seen on 03/02/21. NOTE Gynecology Progress Note I was called to evaluate Alyce for heavy vaginal bleeding that started during intercourse last night at 22:00. She notes that she heard a "pop" and then felt gush of blood. She was in the waiting room for several hours overnight changing depends soaked with blood and passing large clots. She does not feel lightheaded or dizzy currently. H/H at 0400 was wnl and will be repeated. Slight tachycardia, normotensive, afebrile Gen: WDWN, resting comfortably in bed (but bleeding heavy vaginally) SSE (ER nurse as sloop captain): NEFG on close examination. Sterile speculum placed in the vagina and there was welling up of blood and large clots had to be removed with loza swabs to achieve good visualization of the vaginal mucosa. I was then able to visualize a laceration on the posterior wall of the vagina, approx 4cm inside. The laceration itself was 3cm in length and briskly bleeding. After obtaining verbal consent, I anesthetized undermining the laceration with 1% lidocaine and then repaired in routine fashion with 3-0 vicryl in running locked fashion. There was complete hemostasis noted at that point. I instructed the patient on vaginal rest for 4 weeks. Discussed return precautions Bozena Mckeon MD VS,Gaurav, I+O VS, Gaurav, I+O Laboratory Tests 03/02/21 04:08 03/02/21 07:27 Vital Signs Date Time Temp Pulse Resp B/P (MAP) Pulse Ox O2 Delivery O2 Flow Rate FiO2 03/02/21 07:59 117 03/02/21 07:45 127/70 (89) 03/01/21 23:29 98.2 20 98 Room Air Bozena Mckeon MD March 02, 2021 08:32
[2021-03-02 08:46] VITALS: BP 135/86
== END 2021-03-02 09:08 | disposition home or self-care (01) ==
LOC: M ED 23:29
DX: S31.41XA Laceration without foreign body of vagina and vulva, initial encounter (principal); N93.9 Abnormal uterine and vaginal bleeding, unspecified; X50.9XXA Other and unspecified overexertion or strenuous movements or postures, initial encounter; Y92.9 Unspecified place or not applicable; Y93.9 Activity, unspecified; Y99.9 Unspecified external cause status

== ENCOUNTER 2022-01-04 12:59 | Emergency (ER) | payer MEDICAID, OTHER ==
[~2022-01-04] VITALS: Ht 177.8 cm; Wt 54.5 kg
[2022-01-04 15:31] LABS: BASO # 0.1 10^3/uL (0.0-0.2); BASO % 0.7 % (0.0-1.0); EOS % 0.6 % (0.0-3.0); HEMATOCRIT 36.1 % (36.0-47.0); HEMOGLOBIN 12.7 g/dl (12.0-15.5); LYMPH # 1.9 10^3/uL (1.5-5.0); LYMPH % 28.6 % (24.0-44.0); MEAN CORPUSCULAR HEMOGLOBIN 31.6 pg (27.0-33.0); MEAN CORPUSCULAR HGB CONC 35.2 g/dl (32.0-36.5); MEAN CORPUSCULAR VOLUME 89.8 fl (80.0-96.0); MONO # 0.6 10^3/uL (0.0-0.8); MONO % 8.5 % (2.0-8.0); NEUTROPHILS # 4.1 10^3/uL (1.5-8.5); NEUTROPHILS % 61.3 % (36.0-66.0); PLATELET COUNT, AUTOMATED 208 10^3/uL (150-450); RED BLOOD COUNT 4.02 10^6/uL (4.00-5.40); WHITE BLOOD COUNT 6.7 10^3/uL (4.0-10.0)
[2022-01-04 16:12] LABS: BLOOD UREA NITROGEN 9 MG/DL (7-18); CALCIUM LEVEL 9.3 MG/DL (8.5-10.1); CARBON DIOXIDE LEVEL 30 MEQ/L (21-32); CHLORIDE LEVEL 106 MEQ/L (98-107); CREATININE FOR GFR 0.91 MG/DL (0.55-1.30); GLOMERULAR FILTRATION RATE > 60.0 (>60); GLUCOSE, FASTING 84 MG/DL (70-100); POTASSIUM SERUM 3.8 MEQ/L (3.5-5.1); SODIUM LEVEL 139 MEQ/L (136-145); THYROID STIMULATING HORMONE 0.465 uIU/ML (0.358-3.740)
[2022-01-04 16:24] VITALS: BP 103/61
== END 2022-01-04 16:25 | disposition home or self-care (01) ==
LOC: M ED 12:59
DX: R55 Syncope and collapse (principal)

== ENCOUNTER 2022-03-18 13:58 | Emergency (ER) | payer OTHER ==
[~2022-03-18] VITALS: Ht 175.3 cm; Wt 54.5 kg
[2022-03-18 18:29] LABS: BASO % 0.4 % (0.0-1.0); EOS # 0.1 10^3/uL (0.0-0.5); EOS % 0.8 % (0.0-3.0); HEMATOCRIT 33.7 % (36.0-47.0); HEMOGLOBIN 11.5 g/dl (12.0-15.5); LYMPH # 1.8 10^3/uL (1.5-5.0); LYMPH % 23.2 % (24.0-44.0); MEAN CORPUSCULAR HEMOGLOBIN 31.4 pg (27.0-33.0); MEAN CORPUSCULAR HGB CONC 34.1 g/dl (32.0-36.5); MEAN CORPUSCULAR VOLUME 92.1 fl (80.0-96.0); MONO # 0.7 10^3/uL (0.0-0.8); MONO % 8.4 % (2.0-8.0); NEUTROPHILS # 5.3 10^3/uL (1.5-8.5); NEUTROPHILS % 66.9 % (36.0-66.0); PLATELET COUNT, AUTOMATED 211 10^3/uL (150-450); RED BLOOD COUNT 3.66 10^6/uL (4.00-5.40); WHITE BLOOD COUNT 7.9 10^3/uL (4.0-10.0)
[2022-03-18 19:01] VITALS: BP 114/57
== END 2022-03-18 19:02 | disposition home or self-care (01) ==
LOC: M ED 13:58
DX: O20.8 Other hemorrhage in early pregnancy (principal); R10.2 Pelvic and perineal pain; N83.11 Corpus luteum cyst of right ovary; Z3A.01 Less than 8 weeks gestation of pregnancy

== ENCOUNTER → 2022-03-29 | Outpatient (CLI) | payer OTHER ==
[2022-03-29 10:24] LABS: BASO % 0.4 % (0.0-1.0); EOS # 0.1 10^3/uL (0.0-0.5); EOS % 0.7 % (0.0-3.0); HEMATOCRIT 36.1 % (36.0-47.0); HEMOGLOBIN 12.1 g/dl (12.0-15.5); LYMPH # 1.1 10^3/uL (1.5-5.0); LYMPH % 15.5 % (24.0-44.0); MEAN CORPUSCULAR HEMOGLOBIN 31.1 pg (27.0-33.0); MEAN CORPUSCULAR HGB CONC 33.5 g/dl (32.0-36.5); MEAN CORPUSCULAR VOLUME 92.8 fl (80.0-96.0); MONO # 0.6 10^3/uL (0.0-0.8); MONO % 8.9 % (2.0-8.0); NEUTROPHILS # 5.1 10^3/uL (1.5-8.5); NEUTROPHILS % 74.1 % (36.0-66.0); PLATELET COUNT, AUTOMATED 208 10^3/uL (150-450); RED BLOOD COUNT 3.89 10^6/uL (4.00-5.40); WHITE BLOOD COUNT 6.8 10^3/uL (4.0-10.0)
[2022-03-29 12:10] LABS: GC DNA AMPLIFICATION NEGATIVE (NEGATIVE)
[2022-03-29 12:44] LABS: HEPATITIS C VIRUS ABY INDEX 0.1 INDEX (<0.8); HIV 1&2 SCREEN CENTAUR NEGATIVE (NEGATIVE)
== END ==
LOC: M PLALAB 08:43
PROVIDERS: ATTEND Specialist
DX: Z34.81 Encounter for supervision of other normal pregnancy, first trimester (principal)

== ENCOUNTER → 2022-04-09 | Outpatient (CLI) | payer OTHER | LOC: M PLALAB 09:23 | PROVIDERS: ATTEND Specialist | DX: Z34.81 Encounter for supervision of other normal pregnancy, first trimester (principal); Z3A.00 Weeks of gestation of pregnancy not specified ==

== ENCOUNTER → 2022-04-30 | Outpatient (CLI) | payer OTHER | LOC: M WHC 08:04 | PROVIDERS: ATTEND Specialist | DX: Z34.81 Encounter for supervision of other normal pregnancy, first trimester (principal); Z3A.14 14 weeks gestation of pregnancy ==

== ENCOUNTER → 2022-06-06 | Outpatient (CLI) | payer OTHER | LOC: M WHC 10:10 | PROVIDERS: ATTEND Specialist | DX: Z34.82 Encounter for supervision of other normal pregnancy, second trimester (principal); Z3A.19 19 weeks gestation of pregnancy ==

== ENCOUNTER → 2022-07-03 | Outpatient (CLI) | payer OTHER | LOC: M WHC 08:59 | PROVIDERS: ATTEND Specialist | DX: Z34.82 Encounter for supervision of other normal pregnancy, second trimester (principal); Z3A.22 22 weeks gestation of pregnancy ==

== ENCOUNTER → 2022-08-28 | Outpatient (CLI) | payer OTHER ==
[2022-08-28 14:08] LABS: HEMATOCRIT 32.4 % (36.0-47.0); HEMOGLOBIN 10.5 g/dl (12.0-15.5); MEAN CORPUSCULAR HEMOGLOBIN 31.5 pg (27.0-33.0); MEAN CORPUSCULAR HGB CONC 32.4 g/dl (32.0-36.5); MEAN CORPUSCULAR VOLUME 97.3 fl (80.0-96.0); PLATELET COUNT, AUTOMATED 194 10^3/uL (150-450); RED BLOOD COUNT 3.33 10^6/uL (4.00-5.40); WHITE BLOOD COUNT 10.6 10^3/uL (4.0-10.0)
[2022-08-28 16:46] LABS: GC DNA AMPLIFICATION NEGATIVE (NEGATIVE)
== END ==
LOC: M PLALAB 09:15
PROVIDERS: ATTEND Specialist
DX: Z34.82 Encounter for supervision of other normal pregnancy, second trimester (principal); Z3A.00 Weeks of gestation of pregnancy not specified

== ENCOUNTER 2022-09-19 23:32 | Inpatient (IN) | payer OTHER ==
[2022-09-20] VITALS (7 sets, daily range): BP systolic 109–132; BP diastolic 56–78
[2022-09-20] MEDS ORDERED: PENICILLIN G POTASSIUM 5 MU IV 5 MU in D5W MINI-BAG PLUS 100 ML IV STA (00:11)
[2022-09-20] MEDS ORDERED: OXYTOCIN DRIP 30 UNITS in IV 1 EA IV PRN (00:15)
[2022-09-20] MEDS ORDERED: LIDOCAINE 1% MDV 20ML VIAL INFIL PRN (00:15)
[2022-09-20] MEDS: BETAMETHASONE SOLUSPAN 6MG/ML 5ML VIAL (J0702 PER 3MG) IM SCH ×2 (01:00→12:49)
[2022-09-20 01:30] LABS: HEMATOCRIT 29.8 % (36.0-47.0); HEMOGLOBIN 10.3 g/dl (12.0-15.5); MEAN CORPUSCULAR HEMOGLOBIN 31.7 pg (27.0-33.0); MEAN CORPUSCULAR HGB CONC 34.6 g/dl (32.0-36.5); MEAN CORPUSCULAR VOLUME 91.7 fl (80.0-96.0); PLATELET COUNT, AUTOMATED 197 10^3/uL (150-450); RED BLOOD COUNT 3.25 10^6/uL (4.00-5.40); WHITE BLOOD COUNT 8.5 10^3/uL (4.0-10.0)
[2022-09-20] MEDS: PEN G POT 3,000,000 UNIT/50 ML 3,000,000 UNIT in IV 1 EA IV SCH ×5 (05:13→21:41)
[2022-09-20] MEDS ORDERED: OXYTOCIN DRIP 30 UNITS in IV 1 EA IV SCH (17:40)
[2022-09-20] MEDS: LR 1,000 ML IV SCH (18:02)
[2022-09-20] MEDS ORDERED: EPIDURAL/PCA KEYS XX PRN (23:15)
[2022-09-20] MEDS ORDERED: FENTANYL/ROPIVACAINE/NACL BAG 100 ML EPIDURAL SCH (23:15)
[2022-09-20] MEDS ORDERED: NALOXONE INJ 0.4MG/1ML VIAL IV PRN (23:15)
[2022-09-20] MEDS ORDERED: ePHEDrine SULFATE 25 MG/5 ML(5MG/ML) SYRINGE IVP PRN (23:15)
[2022-09-20] MEDS ORDERED: diphenhydrAMINE 50MG/ML VIAL IV PRN (23:15)
[2022-09-20] MEDS ORDERED: LR 500 ML IV PRN (23:15)
[2022-09-20] MEDS ORDERED: ONDANSETRON 4MG 2ML VIAL IV PRN (23:15)
[2022-09-21] VITALS (23 sets, daily range): BP systolic 53–133; BP diastolic 26–79
[2022-09-21] MEDS: LR 1,000 ML IV SCH ×5 (01:16→23:25)
[2022-09-21] MEDS: PEN G POT 3,000,000 UNIT/50 ML 3,000,000 UNIT in IV 1 EA IV SCH ×2 (01:16→08:22)
[2022-09-21] MEDS ORDERED: propofoL 200 MG/20 ML VIAL As Ordered ONE (04:33)
[2022-09-21] MEDS ORDERED: LIDOCAINE 2% 100MG/5ML SDV (FOR ANES.) As Ordered ONE (04:33)
[2022-09-21] MEDS ORDERED: ePHEDrine SULFATE 25 MG/5 ML(5MG/ML) SYRINGE As Ordered ONE (04:33)
[2022-09-21] MEDS ORDERED: SUCCINYLCHOLINE 100MG/5ML SYRINGE As Ordered ONE (04:33)
[2022-09-21] MEDS ORDERED: VASOPRESSIN INJ 20UNITS/ML 1ML VIAL As Ordered ONE (04:34)
[2022-09-21] MEDS ORDERED: MIDAZOLAM INJ 2MG/2ML VIAL (J2250 PER 1MG) As Ordered ONE (04:38)
[2022-09-21] MEDS ORDERED: ROCURONIUM BROMIDE 50MG/5ML VIAL As Ordered ONE (04:49)
[2022-09-21] MEDS ORDERED: KETAMINE HCL 200MG/20ML VIAL As Ordered ONE (04:54)
[2022-09-21] MEDS ORDERED: UNASYN 3GM VIAL As Ordered ONE (05:10)
[2022-09-21] MEDS ORDERED: ONDANSETRON 4MG 2ML VIAL As Ordered ONE (05:21)
[2022-09-21] MEDS ORDERED: ACETAMINOPHEN 1000MG 100ML IV BAG As Ordered ONE (05:21)
[2022-09-21] MEDS ORDERED: METOCLOPRAMIDE INJ 10MG/2ML VIAL As Ordered ONE (05:21)
[2022-09-21] MEDS ORDERED: PHENYLephrine 500MCG 5ML (100MCG/ML) SYRINGE As Ordered ONE (05:30)
[2022-09-21] MEDS ORDERED: SUGAMMADEX SODIUM 500 MG/5 ML VIAL (BRIDION) As Ordered ONE (05:40)
[2022-09-21 05:50] LABS: HEMATOCRIT 29.7 % (36.0-47.0)
[2022-09-21] MEDS ORDERED: fentaNYL 100 MCG/2 ML INJECTION As Ordered ONE (05:51)
[2022-09-21 06:02] LABS: INR 1.13; PROTHROMBIN TIME 14.7 SECONDS (12.5-14.5)
[2022-09-21 06:03] LABS: PARTIAL THROMBOPLASTIN TIME 26.1 SECONDS (24.8-34.2)
[2022-09-21 06:21] LABS: ALBUMIN 1.5 G/DL (3.2-5.2); ALKALINE PHOSPHATASE 59 U/L (46-116); ALT/SGPT < 9 U/L (7.0-40); AST/SGOT 11 U/L (<34); BILIRUBIN,TOTAL 0.2 MG/DL (0.3-1.2); BLOOD UREA NITROGEN 6 MG/DL (9-23); CARBON DIOXIDE LEVEL 16 MMOL/L (20-31); CHLORIDE LEVEL 110 MMOL/L (98-107); CREATININE FOR GFR 0.63 MG/DL (0.55-1.30); GLOMERULAR FILTRATION RATE > 60.0 (>60); GLUCOSE, FASTING 191 MG/DL (60-100); POTASSIUM SERUM 4.2 MMOL/L (3.5-5.1); SODIUM LEVEL 139 MMOL/L (136-145); TOTAL PROTEIN 3.2 G/DL (5.7-8.2)
[2022-09-21] MEDS ORDERED: HYDROMORPHONE HCL 0.5 MG/ 0.5 ML SYRINGE (J1170 PER 1) IV PRN (06:50)
[2022-09-21] MEDS ORDERED: LR 1,000 ML IV SCH (06:50)
[2022-09-21] MEDS ORDERED: fentaNYL 100 MCG/2 ML INJECTION IV PRN (06:50)
[2022-09-21] MEDS ORDERED: ONDANSETRON 4MG 2ML VIAL IV PRN ×2 (06:50→07:25)
[2022-09-21] MEDS ORDERED: oxyCODONE 5MG TAB PO PRN (06:50)
[2022-09-21] MEDS ORDERED: SIMETHICONE 80MG CHEW TAB PO PRN (07:25)
[2022-09-21] MEDS ORDERED: RHOGAM 300 MCG (1500 IU) INJ (J2790) IM SCH (07:25)
[2022-09-21] MEDS ORDERED: diphenhydrAMINE 50MG/ML VIAL IV PRN (07:25)
[2022-09-21] MEDS ORDERED: MORPHINE 1MG/ML IN 0.9% NACL 100ML IV BAG IV PRN ×2 (07:25→10:00)
[2022-09-21] MEDS ORDERED: NALOXONE INJ 0.4MG/1ML VIAL IV PRN (07:25)
[2022-09-21] MEDS ORDERED: EPIDURAL/PCA KEYS XX PRN (07:25)
[2022-09-21] MEDS ORDERED: NS 1,000 ML IV SCH (07:25)
[2022-09-21] MEDS ORDERED: MOM 30ML SUSPENSION UDC PO PRN (07:25)
[2022-09-21] MEDS: KETOROLAC 30 MG/ML 1ML VIAL IV SCH ×3 (09:26→21:00)
[2022-09-21 10:21] LABS: HEMATOCRIT 29.8 % (36.0-47.0); HEMOGLOBIN 10.4 g/dl (12.0-15.5); MEAN CORPUSCULAR HEMOGLOBIN 31.5 pg (27.0-33.0); MEAN CORPUSCULAR HGB CONC 34.9 g/dl (32.0-36.5); MEAN CORPUSCULAR VOLUME 90.3 fl (80.0-96.0); PLATELET COUNT, AUTOMATED 150 10^3/uL (150-450); WHITE BLOOD COUNT 24.5 10^3/uL (4.0-10.0)
[2022-09-21] MEDS: DOCUSATE SODIUM 100MG CAPSULE PO SCH ×2 (10:37→20:13)
[2022-09-21] MEDS: PRENATAL VITAMINS CHEWABLE TABLET PO SCH (10:38)
[2022-09-21] MEDS: AMPICILLIN SOD/SULBACTAM SOD 3 GM in D5W MINI-BAG PLUS 100 ML IV SCH ×2 (11:56→18:01)
[2022-09-22 00:15] VITALS: BP 98/54
[2022-09-22] MEDS: AMPICILLIN SOD/SULBACTAM SOD 3 GM in D5W MINI-BAG PLUS 100 ML IV SCH ×4 (00:43→17:53)
[2022-09-22] MEDS: KETOROLAC 30 MG/ML 1ML VIAL IV SCH (00:44)
[2022-09-22 04:15] VITALS: BP 104/64
[2022-09-22 07:34] LABS: HEMATOCRIT 26.6 % (36.0-47.0); HEMOGLOBIN 8.5 g/dl (12.0-15.5); MEAN CORPUSCULAR HEMOGLOBIN 30.7 pg (27.0-33.0); PLATELET COUNT, AUTOMATED 121 10^3/uL (150-450); RED BLOOD COUNT 2.77 10^6/uL (4.00-5.40)
[2022-09-22] MEDS ORDERED: PERCOCET 5MG/325MG TAB PO PRN (07:40)
[2022-09-22] MEDS: DOCUSATE SODIUM 100MG CAPSULE PO SCH ×2 (10:13→20:03)
[2022-09-22] MEDS: PRENATAL VITAMINS CHEWABLE TABLET PO SCH (10:13)
[2022-09-22] MEDS: PERCOCET 5MG/325MG TAB PO PRN ×2 (10:14→18:35)
[2022-09-22 10:43] VITALS: BP 116/66
[2022-09-22] MEDS ORDERED: IBUPROFEN 600MG TAB PO PRN (11:00)
[2022-09-22 18:00] VITALS: BP 120/62
[2022-09-22 22:00] VITALS: BP 111/62
[2022-09-23] MEDS: AMPICILLIN SOD/SULBACTAM SOD 3 GM in D5W MINI-BAG PLUS 100 ML IV SCH ×2 (00:14→06:11)
[2022-09-23 02:00] VITALS: BP 111/64
[2022-09-23 06:00] VITALS: BP 109/63
[2022-09-23] MEDS: PERCOCET 5MG/325MG TAB PO PRN (06:20)
[2022-09-23 07:51] LABS: HEMATOCRIT 25.9 % (36.0-47.0); HEMOGLOBIN 8.6 g/dl (12.0-15.5); MEAN CORPUSCULAR HEMOGLOBIN 30.8 pg (27.0-33.0); MEAN CORPUSCULAR HGB CONC 33.2 g/dl (32.0-36.5); MEAN CORPUSCULAR VOLUME 92.8 fl (80.0-96.0); PLATELET COUNT, AUTOMATED 135 10^3/uL (150-450); RED BLOOD COUNT 2.79 10^6/uL (4.00-5.40); WHITE BLOOD COUNT 9.1 10^3/uL (4.0-10.0)
[2022-09-23] MEDS ORDERED: MEASLES,MUMPS,RUBELLA VACCINE INJ (MMR-II) (90707) SC.IMMUN ONE (09:00)
[2022-09-23 10:00] VITALS: BP 110/60
[2022-09-23] MEDS: PRENATAL VITAMINS CHEWABLE TABLET PO SCH (10:15)
[2022-09-23] MEDS: DOCUSATE SODIUM 100MG CAPSULE PO SCH (10:15)
[2022-09-23] MEDS ORDERED: PERCOCET PO (11:47)
[2022-09-23] MEDS ORDERED: COLA100C5 PO (11:47)
[2022-09-23] MEDS ORDERED: IBUP-1022 PO (11:47)
== END 2022-09-23 13:55 | disposition home or self-care (01) | DRG 542 ==
LOC: M LDO 23:32 → M LDI 09-20 00:09 → M OBS 09-21 08:05
PROVIDERS: ADMIT Specialist; ATTEND Specialist
PROC: 0UT90ZZ Resection of Uterus, Open Approach (ICD-10-PCS; 2022-09-21)
PROC: 3E033VJ Introduction of Other Hormone into Peripheral Vein, Percutaneous Approach (ICD-10-PCS; 2022-09-21)
PROC: 10E0XZZ Delivery of Products of Conception, External Approach (ICD-10-PCS; principal; 2022-09-21 04:45)
DX: O42.013 Preterm premature rupture of membranes, onset of labor within 24 hours of rupture, third trimester (principal); O71.2 Postpartum inversion of uterus; O72.1 Other immediate postpartum hemorrhage; Z37.0 Single live birth; Z3A.34 34 weeks gestation of pregnancy; O43.213 Placenta accreta, third trimester

== ENCOUNTER → 2023-07-18 | Outpatient (CLI) | payer OTHER ==
[~2023-07-18] MED LIST changes: +IBUP-1022 PO; +PERCOCET PO
== END ==
LOC: M WHC 12:23
PROVIDERS: ATTEND Physician Assistant Medical
DX: Z90.711 Acquired absence of uterus with remaining cervical stump (principal)

== ENCOUNTER → 2023-11-18 | Outpatient (REF) | payer OTHER | LOC: M SFHCWAGY 17:58 | PROVIDERS: ATTEND Specialist | DX: Z01.419 Encounter for gynecological examination (general) (routine) without abnormal findings (principal) ==